=== PATIENT | female | born 1945 | race Caucasian/White ===

== ENCOUNTER 2017-10-07 19:06 | Inpatient (IN) | payer MEDICARE ==
[~2017-10-07] VITALS: Ht 162.6 cm; Wt 40.5 kg
--- NOTE | ~2017-10-07 | CON ---
[place], [place] REPORT OF CONSULTATION NAME: WALKER SINGLETON [facility] #: [id number] UNIT #: [id number] ROOM: 528 DOCTOR: LAVERNE MILLER MD BIRTHDATE: [birth year] DOS: 10/08/2017 REQUESTED BY: Hospitalist services. REASON FOR CONSULTATION: Assessment of acute pneumonia for this patient with influenza infection as well. HISTORY OF PRESENT ILLNESS: This is a 72-year-old white female patient was brought to the hospital, cannot speak for the patient because of severe hard of hearing for the patient and impairment. The patient's history was obtained for this patient, partially by writing few sentences for this patient and most of his review from the history which are documented, obtained from the guardian of this patient in the Emergency Room. The patient was seen in the [facility] Care for this patient because of the ongoing acute respiratory symptoms ongoing for the past few days. The patient has been reported symptoms of coughing and chest congestion. She has not been noted and symptoms of wheezing. As the patient was seen in the Emergency Room, pulse oxygen saturation of the patient recorded as 88% on room air at rest. She was sent to the ER [facility] for further assessment. Upon assessment, the patient has been noted with symptoms consistent with acute respiratory failure, also noted with fever for the patient of 101 degree Fahrenheit. Influenza B infection and acute pneumonia was also noted with a chest x-ray. She has been admitted to the hospital at this time receiving oxygen supplementation, bronchodilator, antiviral treatment, antibiotics for this patient and other medical management at the present time. She has been seen sitting comfortably on the bed this morning of assessment. REVIEW OF SYSTEMS: Certainly cannot be excluded at the present time. PAST MEDICAL HISTORY: Reported as a chronic hearing impairment and loss. SOCIAL HISTORY: The patient was reported nonsmoker. There is no history of alcohol use, illicit drug use are reported. PAST SURGICAL HISTORY: Noted T and A as a child. FAMILY HISTORY: Noted positive for diabetes mellitus and asthma. HOME MEDICATIONS: Essentially noted no regular use of medications. DRUG ALLERGY HISTORY: Reported as no known drug allergies. PHYSICAL EXAMINATION: GENERAL: This is a 72-year-old female who has been currently sitting comfortably on the bed and is eating her breakfast without any distress. Height of 5 feet 4 inches, weight of 89 pounds with BMI 15.3. VITAL SIGNS: For the patient which has been reported shows the temperature of the patient noted at 100.2 degrees Fahrenheit as a maximum temperature, respiratory rate of 18-20, heart rate 66-90, blood pressure 100/62-123/51. Intake for the patient was recorded as 1100, output 500 mL. Pulse oxygen [place], [place] REPORT OF CONSULTATION NAME: WALKER SINGLETON UNIT #: [id number] ROOM: 528 DOCTOR: ROSENDA VELASQUEZ MD,LAVERNE BIRTHDATE: [birth year] saturation on room air was 97% saturation at rest. HEENT: Examination shows head was atraumatic. Eyes nonicterus. NECK: Supple. Oral mucosa was moist. CARDIOVASCULAR: S1, S2 is audible. LUNGS: The patient was noted with decreased breaths are noted essentially in the right lower lobe. Mild crackles. EXTREMITIES: Noted without any edema. MUSCULOSKELETAL: The patient was noted without any acute deformities. SKIN: Noted without lesions or rashes. CENTRAL NERVOUS SYSTEM: Except the abnormality of the hearing for this patient rest of the cranial nerves appear to be intact for this patient with limited exam. LABORATORY DATA: Lactic acid is 2.0 noted in remission 10/07/2017. The 10/07/2017, CBC for the patient was noted with a WBC count of 4.8, hemoglobin and hematocrit normal, platelet count was normal. CMP for the patient that was done for the patient, normal BUN, creatinine, glucose 123. Albumin of 2.9. CMP this morning, the patient essentially remains the same. Influenza A and B infection noted positive for patient's influenza B. The chest x-ray of the patient that was done for the patient on 10/07/2007 for the patient shows moderate area of consolidation, infiltration in the right lower lobe for the patient with a small pleural fluid for patient was suspected. IMPRESSION: 1. The patient who has been currently admitted to the hospital noted with influenza B infection with possibly superimposed bacterial pneumonia was considered for this patient with right lower lobe consolidation and associated pleural fluid according to that. 2. The patient with chronic impairment of the hearing for this patient was also noted as well. PLAN OF MANAGEMENT: The patient is currently receiving the intravenous antibiotic as Rocephin and Zithromax for the bacterial infection coverage for the Staph aureus and for the streptococcal pneumonia, which could occur for the patient porcelain further infection. She is also receiving the Tamiflu 75 mg b.i.d. that will be continued for the infection management of influenza infection. Monitor the chest x-ray of the patient closely and the pleural fluid. The pleural fluid was noted quite small at this time and would not require any intervention. If the gas Amor for the patient, certainly thoracentesis could be assessed and done for the patient at that time. In the meantime, continue other supportive therapy, plan of management care plan. Usual treatment. All other plan of therapy and care. [place], [place] REPORT OF CONSULTATION NAME: WALKER SINGLETON UNIT #: [id number] ROOM: 528 DOCTOR: LAVERNE MILLER MD BIRTHDATE: [birth year] LAVERNE HERZOG MD CM:CONSTR:REPORT OF CONSULTATION 1211 10/09/17 0040 interface
--- NOTE | ~2017-10-07 | PR ---
[place], [place] PROGRESS NOTE NAME: WALKER SINGLETON UNIT #: [id number] ROOM: 528 DOCTOR: ROSENDA VELASQUEZ MD,LAVERNE BIRTHDATE: [birth year] DOS: 10/11/2017 SUBJECTIVE: The patient has been noted comfortable at the present time, sitting on the bed, does not have any verbal communication because of hearing impairment. She was not noted with any distress. OBJECTIVE: VITAL SIGNS: Showed normal temperature, respiratory rate 20, heart rate of 76, blood pressure 115/65. The pulse oxygen saturation was noted on room air 94% saturation. HEENT: Chronic hearing loss. NECK: Supple. CARDIOVASCULAR: S1, S2 audible without any added sounds. LUNGS: Decreased breath sounds noted in the lower portion of the lungs bilaterally without any crackles or wheezing heard. ABDOMEN: Soft, nontender and flat. EXTREMITIES: Without any acute edema. LABORATORY DATA: CBC of yesterday, WBC count was 3.3. Urine strep antigen and the legionella antigen were both noted negative. IMPRESSION: 1. Bilateral pleural fluid with multifocal pneumonia was noted at this time with recent influenza infection as well, being treated. 2. Leukopenia as well. PLAN OF MANAGEMENT: At this time, the patient's family member wished not to have any intervention done such a bronchoscopy, thoracentesis, or other intervention. The patient would be continuing the current conservative treatment as well. Her prognosis remains guarded. The patient was planned home today as well by the primary care attending because of the refusal of further intervention as stated by the family members. LAVERNE HERZOG MD CM:PNTRANS [id number] LAVERNE VELASQUEZ MD 10/12/17 0252 interface
--- NOTE | ~2017-10-07 | PR ---
[place], [place] PROGRESS NOTE NAME: WALKER SINGLETON [facility] #: [id number] UNIT #: [id number] ROOM: 528 DOCTOR: ROSENDA VELASQUEZ MD,LAVERNE BIRTHDATE: [birth year] DOS: 10/10/2017 SUBJECTIVE: The patient has been noted comfortable sitting on the bed. She has not reported any symptoms except coughing was reported. The patient cannot communicate verbally. Denies any shortness of breath at rest. The patient has not been noted any edema or pain of the lower extremities or other abnormal symptoms with a limited review of systems. OBJECTIVE: VITAL SIGNS: For the patient, which has been recorded shows temperature remains normal. The respiratory rate 18, heart rate 68, blood pressure 130/64. Pulse oxygen saturation noted on room air 97% saturation. HEENT: Shows head was atraumatic. Eyes, no icterus. NECK: Supple. CARDIOVASCULAR: S1, S2 is audible. LUNGS: The patient was noted without any crackles. Decreased breath sounds are noted in the lower portion of the lungs bilaterally. ABDOMEN: Soft, flat, nontender. EXTREMITIES: Without any acute edema. CENTRAL NERVOUS SYSTEM: The patient was noted without any gross focal neurological deficit. LABORATORY DATA: Culture of the sputum noted normal amie, spontaneous sputum culture from 10/08/2017 of this month. The CMP this morning was reviewed for the patient noted with a BUN 12, creatinine was normal. CMP was noted essentially normal except ALT elevated at 91. CBC of today; WBC count 3.3, hemoglobin 11.4, hematocrit 35.5, platelet count was normal. CT scan of the chest that was ordered by me yesterday was completed at 12:40 p.m. was reviewed. The parenchymal view window was initially reviewed from the PACS images shows moderate to large infiltration noted in the right lower lobe with air bronchogram with associated pleural fluid. Another patchy infiltration noted in lower lung with a small pleural fluid associated with that. IMPRESSION: 1. Currently noted ongoing acute pneumonia bilaterally in the lower lung, larger on the right and the left side with associated pleural effusion. 2. Leukopenia related to infection or medication or due to combination of both. 3. Influenza infection as well. 4. Chronic hearing impairment. PLAN OF MANAGEMENT: Discussion with the patient's family members about consent needed for the bronchoscopy and possible thoracentesis. We have to determine any endobronchial obstruction causing additional area of atelectasis, pneumonia and also to have get accurate culture identification for the pneumonia management. Monitoring the leukopenia. Thoracentesis for the patient could be done with ultrasound assessment, the family member agreeable for that. Other treatment changes will be made based on progression of the illness. The assessment and management has been discussed with primary care attending. Management changes will be done if the consent for either of the procedures received. [place], [place] PROGRESS NOTE NAME: WALKER SINGLETON UNIT #: [id number] ROOM: 528 DOCTOR: LAVERNE MILLER MD BIRTHDATE: [birth year] LAVERNE HERZOG MD CM:PNTRANS 1220 LAVERNE VELASQUEZ MD 10/11/17 0206 interface
--- NOTE | ~2017-10-07 | PR ---
[place], [place] PROGRESS NOTE NAME: WALKER SINGLETON [facility] #: [id number] UNIT #: [id number] ROOM: 528 DOCTOR: ROSENDA VELASQUEZ MD,LAVERNE BIRTHDATE: [birth year] DOS: 10/09/2017 SUBJECTIVE: She has been noted comfortable at the present time. She has been resting in her room. She had not been noted with any symptoms of chest pain. Unable to speak with this patient because of the chronic hearing impairment. OBJECTIVE: VITAL SIGNS: Recorded, showed the temperature noted as normal. The respiratory rate of the patient recorded as 20, heart rate of 73, blood pressure 120/68. The pulse oxygen saturation of the patient noted as 98% on room air. HEENT: No acute change. NECK: Supple. CARDIOVASCULAR: S1, S2 audible. LUNGS: Decreased breath sounds noted in the right lower portion of the lung. There was no wheezing. ABDOMEN: Soft, nontender. EXTREMITIES: Noted without any acute edema. MUSCULOSKELETAL: No gross deformity. SKIN: Visible skin, no lesions or rashes. CENTRAL NERVOUS SYSTEM: No focal deficit except the patient was noted with hearing impairment, which is chronic. LABORATORY DATA: Blood culture of the patient, which was done shows no bacterial growth on 10/07/2017. Culture of the sputum, normal amie preliminarily noted. The Gram stain of 10/08/2017 shows many white blood cells, moderate epithelial cells, few gram-positive bacilli and gram-negative bacilli. Urine culture preliminarily showed no bacterial growth, final culture results were pending. IMAGING STUDIES: Two-view chest x-ray of the patient that was done this morning shows persistent moderate size infiltration, which is present in the right lower lobe with possibility of some area of atelectasis in the right middle lobe, which can be excluded. A small left-sided pleural fluid was also suspected. IMPRESSION: The patient with acute pneumonia, which was noted associated with the pleural fluid with some additional area of atelectasis. Coughing seemed to be decreased for this patient at this time. Symptomatically, the patient has been noted stable without any changes from yesterday. PLAN OF MANAGEMENT: CT scan of the chest will be obtained for the patient without contrast for further assessment. Based on CT scan of the chest if necessary, therapeutic bronchoscopy would be suggested if the atelectasis is confirmed. Other supportive therapy, plan of management and other care plan. Monitoring results of the sputum culture. [place], [place] PROGRESS NOTE NAME: WALKER SINGLETON [place] UNIT #: [id number] ROOM: 528 DOCTOR: LAVERNE MILLER MD BIRTHDATE: [birth year] LAVERNE HERZOG MD CM:PNTRANS [id number] LAVERNE VELASQUEZ MD 10/09/17 2314 interface
[2017-10-07 19:24] VITALS: BP 123/51
[2017-10-07 20:08] LABS: HEMOGLOBIN 12.7 g/dl (12.0-16.0); MEAN CELL VOLUME 98.8 fl (81.0-99.0); MEAN CORPUSCULAR HGB 31.4 pg (27.0-31.0); MEAN CORPUSCULAR HGB CONC 31.8 g/dl (33.0-37.0); MEAN PLATELET VOLUME 10.4 fl (9.6-12.3); PLATELET COUNT AUTOMATED 150 10*3/uL (130-400); RED BLOOD COUNT 4.05 10*6/uL (4.10-5.10); RED CELL DISTRI WIDTH 14.4 % (0-14.5); WHITE BLOOD COUNT 4.8 10*3/uL (4.8-10.8)
[2017-10-07 20:20] LABS: BILIRUBIN NEGATIVE (NEGATIVE); BLOOD 1+ (NEGATIVE); CLARITY SL CLOUDY (CLEAR); COLOR YELLOW (YELLOW); GLUCOSE NEGATIVE (NEGATIVE); KETONE TRACE (NEGATIVE); LEUKO ESTERASE NEGATIVE (NEGATIVE); NITRITE NEGATIVE (NEGATIVE); SPECIFIC GRAVITY 1.025 (1.005-1.030)
[2017-10-07 20:26] LABS: ALBUMIN 2.9 gm/dl (3.1-4.5); ALKALINE PHOSPHATASE 89 U/L (45-117); BUN 15 mg/dl (7-24); CHLORIDE 103 mmol/L (98-107); CREATININE 0.83 mg/dL (0.55-1.02); POTASSIUM 4.2 mmol/L (3.5-5.1); SGOT/AST 27 IU/L (3-35); SGPT/ALT 31 U/L (12-78); SODIUM 138 mmol/L (136-145)
[2017-10-07 20:29] LABS: TROPONIN I < 0.015 ng/ml (<0.045)
[2017-10-07 20:34] LABS: BACTERIA TRACE; EPITHELIAL CELLS 0-2
[2017-10-07 20:37] LABS: PLATELET SUFFICIENCY NORMAL (NORMAL); TOTAL CELLS COUNTED 100 #CELLS; TOXIC GRANULATION SLIGHT
[2017-10-07 20:38] LABS: BURR CELLS MODERATE
[2017-10-07 21:45] VITALS: BP 117/66
[2017-10-08] VITALS: BP 103/50
[2017-10-08 06:10] LABS: HEMOGLOBIN 11.9 g/dl (12.0-16.0); MEAN CELL VOLUME 98.4 fl (81.0-99.0); MEAN CORPUSCULAR HGB 31.6 pg (27.0-31.0); MEAN CORPUSCULAR HGB CONC 32.2 g/dl (33.0-37.0); MEAN PLATELET VOLUME 10.4 fl (9.6-12.3); PLATELET COUNT AUTOMATED 142 10*3/uL (130-400); RED BLOOD COUNT 3.76 10*6/uL (4.10-5.10); RED CELL DISTRI WIDTH 14.5 % (0-14.5); WHITE BLOOD COUNT 4.5 10*3/uL (4.8-10.8)
[2017-10-08 06:36] LABS: ALBUMIN 2.5 gm/dl (3.1-4.5); ALKALINE PHOSPHATASE 87 U/L (45-117); BUN 12 mg/dl (7-24); CHLORIDE 105 mmol/L (98-107); CHOLESTEROL 107 mg/dL (<200); CREATININE 0.77 mg/dL (0.55-1.02); PHOSPHOROUS 2.4 mg/dL (2.5-4.9); POTASSIUM 4.4 mmol/L (3.5-5.1); SGOT/AST 23 IU/L (3-35); SGPT/ALT 26 U/L (12-78); SODIUM 139 mmol/L (136-145); TOTAL PROTEIN 7.2 gm/dL (6.4-8.2); TRIGLYCERIDES 96 mg/dl (<150); VLDL CHOLESTEROL 19 mg/dL (6-40)
[2017-10-08 06:43] LABS: FREE T4 0.98 ng/dl (0.76-1.46); HDL CHOLESTEROL 36 mg/dl (40-60); LDL CHOLESTEROL 52 mg/dL (9-159); THYROID STIM HORMONE (HS) 0.879 uIU/ml (0.358-4.75)
[2017-10-08 07:07] LABS: TOTAL CELLS COUNTED 100 #CELLS
[2017-10-08 07:08] LABS: BURR CELLS FEW; PLATELET SUFFICIENCY NORMAL (NORMAL)
[2017-10-08 08:00] VITALS: BP 105/62
[2017-10-08 08:13] LABS: VITAMIN D, 25-HYDROXY 8.7 ng/mL (30-100)
[2017-10-08 12:00] VITALS: BP 102/48
[2017-10-08 16:00] VITALS: BP 103/53
[2017-10-08 20:00] VITALS: BP 101/50
[2017-10-09 00:30] VITALS: BP 114/57
[2017-10-09 08:00] VITALS: BP 130/63
[2017-10-09 12:00] VITALS: BP 128/68
[2017-10-09 16:00] VITALS: BP 126/65
[2017-10-09 20:00] VITALS: BP 121/66
[2017-10-10] VITALS: BP 123/64
[2017-10-10 06:36] LABS: HEMATOCRIT 35.5 % (37.0-47.0); HEMOGLOBIN 11.4 g/dl (12.0-16.0); MEAN CELL VOLUME 95.9 fl (81.0-99.0); MEAN CORPUSCULAR HGB 30.8 pg (27.0-31.0); MEAN CORPUSCULAR HGB CONC 32.1 g/dl (33.0-37.0); MEAN PLATELET VOLUME 10.3 fl (9.6-12.3); PLATELET COUNT AUTOMATED 165 10*3/uL (130-400); RED CELL DISTRI WIDTH 14.5 % (0-14.5); WHITE BLOOD COUNT 3.3 10*3/uL (4.8-10.8)
[2017-10-10 06:39] LABS: ALBUMIN 2.5 gm/dl (3.1-4.5); ALKALINE PHOSPHATASE 95 U/L (45-117); BUN 12 mg/dl (7-24); CHLORIDE 105 mmol/L (98-107); PHOSPHOROUS 2.9 mg/dL (2.5-4.9); POTASSIUM 3.8 mmol/L (3.5-5.1); SGOT/AST 91 IU/L (3-35); SGPT/ALT 58 U/L (12-78); SODIUM 140 mmol/L (136-145); TOTAL PROTEIN 6.9 gm/dL (6.4-8.2)
[2017-10-10 06:50] VITALS: BP 132/64
[2017-10-10 07:19] LABS: PLASMA CELL 1 % (0-0); PLATELET SUFFICIENCY NORMAL (NORMAL); ROULEAUX SLIGHT; TOTAL CELLS COUNTED 100 #CELLS
[2017-10-10 16:00] VITALS: BP 131/72
[2017-10-10 20:00] VITALS: BP 123/63
[2017-10-11] VITALS: BP 130/71
[2017-10-11 06:31] VITALS: BP 115/65
[2017-10-11 08:00] VITALS: BP 115/65
[2017-10-11] MEDS ORDERED: VITAMIN D-32000 UNIT PO (09:14)
[2017-10-11] MEDS ORDERED: TAMIFLU 75MG CA75 MG PO (09:14)
[2017-10-11] MEDS ORDERED: MUCINEX ER600 MG PO (09:14)
[2017-10-11] MEDS ORDERED: VIBRAMYCIN100 MG PO (09:14)
[2017-10-11] MEDS ORDERED: Vitamin D PO ×2 (09:14→13:43)
== END 2017-10-11 13:20 | disposition home or self-care (01) | DRG 871 ==
LOC: ED 19:06 → 5E 20:47 → EDHOLD 20:47 → 5E 20:55
PROVIDERS: Internal Medicine; Registered Nurse
DX: A41.9 Sepsis, unspecified organism (principal); J96.01 Acute respiratory failure with hypoxia; E43 Unspecified severe protein-calorie malnutrition; J10.08 Influenza due to other identified influenza virus with other specified pneumonia; J18.1 Lobar pneumonia, unspecified organism; J90 Pleural effusion, not elsewhere classified; Z68.1 Body mass index [BMI] 19.9 or less, adult; H91.90 Unspecified hearing loss, unspecified ear; E83.51 Hypocalcemia; E83.41 Hypermagnesemia; E83.39 Other disorders of phosphorus metabolism; Z83.3 Family history of diabetes mellitus; Z82.5 Family history of asthma and other chronic lower respiratory diseases